=== PATIENT | male | born 1970 | race Asian ===

== ENCOUNTER 2025-10-28 12:40 | Emergency (ER) | payer BC, SELFPAY ==
[2025-10-28 12:41] VITALS: BP 164/113
[2025-10-28 13:11] VITALS: BMI 25.8
--- NOTE | 2025-10-28 13:13 | ED.GENMED ---
History of Present Illness
<Alyce Smith PA-C - Last Filed: 10/29/25 15:13>
General
Chief Complaint: Head Injury
Source: patient
Exam Limitations: none
Time Seen by Provider: 10/28/25 12:52
Nursing documentation reviewed up to this point in time: agreed with
History of Present Illness
History of Present Illness:
see MDM
Past History
<Alyce Smith PA-C - Last Filed: 10/29/25 15:13>
Past History
ED Past Medical History: HTN
Social History
Tobacco: Non-smoker
Alcohol: None
Drug: None
Review of Systems
<Alyce Smith PA-C - Last Filed: 10/29/25 15:13>
Review of Systems
Allergies reviewed?: Yes
All Other Systems: Not applicable
Phy Exam
<Alyce Smith PA-C - Last Filed: 10/29/25 15:13>
Physical Exam
Physical Exam:
GENERAL: Alert , in no apparent distress
HEAD: Forehead laceration approximately 5 cm subcutaneous, not down to the g[place]
No facial bone tenderness
NECK: no midline tenderness, active ROM intact, no paraspinal muscle tenderness;
EYE: pupils equal and reactive, EOMs intact.
NO HYPHEMA
SMALL LACERATION TO LEFT UPPER EYELID 3 MM
ENT: o/p clr, mmm. no hemotympanum Fresh blood in the left nare, no active bleeding, turbinates slightly swollen, no obvious septal hematoma, nontender nasal bone
CARDIAC: Regular rate and rhythm, no edema
LUNGS: Clear breath sounds bilaterally, no acute respiratory distress, no wheezes/rales/rhonchi
ABDOMEN: Soft, without focal tenderness, no r/g, no cvat
NEUROLOGICAL: Alert and oriented, no focal neuro deficits, CN intact, 5/5 strength, sensation intact; HAD SOME AMENSIA/REPETITION OF QUESTIONS AFTER THE INCIDENT WITNESSED BY DAUGHTER BUT GCS 15 HERE
SKIN: Warm and dry,
MUSCULOSKELETAL: No edema, well perfused.
PSYCH: Normal and appropriate interaction.
Course
<Alyce Smith PA-C - Last Filed: 10/29/25 15:13>
Orders/Labs/Results
Orders:
Orders
10/28/25 12:49
CT Head W/o Iv Contrast Stat
Comment:
Reason For Exam: head injury, acute confusion
Facial Bones wo Contrast CT [CT Facial Bones W/o Iv Contras] Urgent
Comment:
Reason For Exam: facial trauma
10/28/25 13:01
Tetanus/Diphth/Acelpertussis [Adacel] 0.5 ml IM .ONCE ONE
10/28/25 13:16
Phenylephrine 1% Extra Strengt [Satish-Synephrine 1% Nasal [place]] See Dose Instructions NASAL NOW STA
10/28/25 14:15
Acetaminophen 1000MG/100Ml [Ofirmev] 1,000 mg in 100 ml IV ONCE
Acetaminophen IV Indication:: No TX & No Enteral Access
10/28/25 14:22
Complete Blood Count/With Diff Urgent
Comprehensive Metabolic Panel Urgent
PTT Urgent
Prothrombin Time Urgent
10/28/25 14:26
Labetalol HCl [Trandate] 10 mg IV NOW STA
Levetiracetam Injectable [Keppra] 1,000 mg IV NOW STA
10/28/25 16:44
CefTRIAXone [Rocephin] 1,000 mg IV NOW STA
Abnormal Lab Results
10/28/25
14:22
MCH 31.3 H pg
(27.0-31.0)
Absolute Neuts (auto) 7.5 H 10^3/uL
(1.4-6.5)
Absolute Lymphs (auto) 0.9 L 10^3/uL
(1.2-3.4)
Neutrophils % 84.1 H %
(42.2-75.2)
Lymphocytes % 10.2 L %
(20.5-51.1)
Glucose 144 H mg/dl
(70-99)
Total Bilirubin 1.6 H mg/dl
(0.2-1.3)
AST 67 H U/L
(17-59)
ALT 86 H U/L
(0-50)
10/28/25 14:22
10/28/25 14:22
Vital Signs
Initial and Last Documented VS:
Initial Vital Signs
Temp Pulse Resp BP Pulse Ox
36.6 C 127 20 164/113 99
10/28/25 12:41 10/28/25 12:41 10/28/25 12:41 10/28/25 12:41 10/28/25 12:41
Last Documented Vital Signs
Temp Pulse Resp BP Pulse Ox
36.6 C 109 16 116/83 96
10/28/25 12:41 10/28/25 17:00 10/28/25 17:00 10/28/25 17:00 10/28/25 17:00
<Marcia Bautista, DO - Last Filed: 10/28/25 15:06>
Orders/Labs/Results
Orders:
Orders
10/28/25 12:49
CT Head W/o Iv Contrast Stat
Comment:
Reason For Exam: head injury, acute confusion
Facial Bones wo Contrast CT [CT Facial Bones W/o Iv Contras] Urgent
Comment:
Reason For Exam: facial trauma
10/28/25 13:01
Tetanus/Diphth/Acelpertussis [Adacel] 0.5 ml IM .ONCE ONE
10/28/25 13:16
Phenylephrine 1% Extra Strengt [Satish-Synephrine 1% Nasal [place]] See Dose Instructions NASAL NOW STA
10/28/25 14:15
Acetaminophen 1000MG/100Ml [Ofirmev] 1,000 mg in 100 ml IV ONCE
Acetaminophen IV Indication:: No TX & No Enteral Access
10/28/25 14:22
Complete Blood Count/With Diff Urgent
Comprehensive Metabolic Panel Urgent
PTT Urgent
Prothrombin Time Urgent
10/28/25 14:26
Labetalol HCl [Trandate] 10 mg IV NOW STA
Levetiracetam Injectable [Keppra] 1,000 mg IV NOW STA
10/28/25 16:44
CefTRIAXone [Rocephin] 1,000 mg IV NOW STA
Abnormal Lab Results
10/28/25
14:22
MCH 31.3 H pg
(27.0-31.0)
Absolute Neuts (auto) 7.5 H 10^3/uL
(1.4-6.5)
Absolute Lymphs (auto) 0.9 L 10^3/uL
(1.2-3.4)
Neutrophils % 84.1 H %
(42.2-75.2)
Lymphocytes % 10.2 L %
(20.5-51.1)
Glucose 144 H mg/dl
(70-99)
Total Bilirubin 1.6 H mg/dl
(0.2-1.3)
AST 67 H U/L
(17-59)
ALT 86 H U/L
(0-50)
10/28/25 14:22
10/28/25 14:22
Vital Signs
Initial and Last Documented VS:
Initial Vital Signs
Temp Pulse Resp BP Pulse Ox
36.6 C 127 20 164/113 99
10/28/25 12:41 10/28/25 12:41 10/28/25 12:41 10/28/25 12:41 10/28/25 12:41
Last Documented Vital Signs
Temp Pulse Resp BP Pulse Ox
36.6 C 109 16 116/83 96
10/28/25 12:41 10/28/25 17:00 10/28/25 17:00 10/28/25 17:00 10/28/25 17:00
Procedures
<Alyce Smith PA-C - Last Filed: 10/29/25 15:13>
Laceration Closure
Left Forehead:
Status of Wound: clean
Size of Wound in cm: 5
Description of Wound Edges: ragged and flap-well vascularized
Preparation: cleaned with saline
Anesthesia: 1% Lidocaine with epi
Revision/Debridement: minor revision
Wound exploration: explored to base- no FB
Type of Closure: layered closure
Skin Closure Material: 6-0 prolene (14) and 5-0 vicryl (3)
Number of sutures: 17
<Alyce Smith PA-C - Last Filed: 10/29/25 15:13>
MDM/Problems Addressed
Differential Diagnosis Includes:
see MDM
MDM/Problems Addressed:
Note:
CHIEF COMPLAINT(S)
Facial trauma and nosebleed following a garage door injury.
HISTORY OF PRESENT ILLNESS
The patient is a 55 Y/O male h/o HTN who presented with facial trauma and a nosebleed after attempting to fix a garage door. He described that while working with the metal part of the door, it fell and struck him on the face, causing laceration to
forhead, eyelid and nose bleed.. At the time of the incident, he was wearing glasses which did not shatter. There was immediate bleeding from the nose, which the patient was holding to manage the bleed. He denied any significant pain in the jaw or
elsewhere and reported no loss of consciousness or vomiting. When asked, he mentioned not experiencing any headache currently. The patient has experienced nosebleeds previously but stated it has been a long time since the last occurrence. There was
no known history of nasal fracture.
tetanus outdated
no vomiting, confusion, weakness, neck pain, vision changes
pt was wearing glasses and did not get direct trauma to his eyes.
PAST MEDICAL AND SURGICAL HISTORY
The patient provided the history of prior nosebleeds but no details of other medical issues are noted. He mentioned not being on any blood thinners.
IMMUNIZATION HISTORY
The patient last received a tetanus vaccine more than five years ago.
PLAN
- Conduct imaging studies to assess for any fractures resulting from the trauma.
- Administration of a tetanus booster, given it has been over five years since the last vaccination.
- Following imaging, suturing will be performed on any lacerations if necessary.
- Application of nasal medication to reduce bleeding by shrinking capillaries.
- Dressing to be applied over any wound to manage bleeding and prevent further exposure.
- Patient advised to lean forward if further nasal bleeding occurs, and to pinch the nose.
DIFFERENTIAL DIAGNOSIS
The Differential Diagnosis includes, in no particular order and is not limited to:
1. Nasal fracture
2. Facial contusion
3. Septal hematoma
4. Sinus fracture
5. Concussion
6. Orbital fracture
7. Laceration of facial vessels
8. Epistaxis secondary to facial trauma
9. Head trauma
10. Soft tissue injury
CARE-UPDATE
10/28/25 - 14:12
Patient exhibited signs of confusion and repetitive questioning post-injury, indicating a possible mild concussion with transient amnesia. A CT scan revealed a depressed fracture involving the frontal sinus extending to the skull, suggesting
additional observation is needed. Due to the nature of the injury, consultation with ENT and neurosurgery is advisable for monitoring potential bleeding or increased area of concern, though current findings are subtle. Transfer to a capable trauma
center is necessary for overnight observation. The patient and family opted for [facility] due to its affiliation with [facility], ensuring seamless transition if further care at [facility] is needed. Patient should remain NPO pending further evaluation
and transfer. An IV line will be initiated for fluid administration, and the wound will receive sutures. Precautions include avoiding blood thinners like aspirin or Plavix; patient only on antihypertensive medication. Transfer will be arranged via
ambulance with one accompanying family member if possible.
ct report: Acute fractures through the anterior and posterior olver[place] of the left frontal sinus with comminution and mild displacement/depression. Depressed fracture fragments from the posterior wall with mild mass effect on the anterior aspect of the
left frontal lobe. Mild adjacent left frontal pneumocephalus. Very minimal subarachnoid hemorrhage may be present.
I spoke with trauma at [facility] who accepted him as a level [address] 14 sutures in the wound, +3 subcuticular stitches
We will give him a dose of IV Rocephin for prophylaxis
There was a delay in transport on the ground via [facility] until 9:30 PM originally. We considered flying the patient after discussion with the trauma surgeon who felt that 9:30 PM was too late to wait. However they were able to get critical care
ambulance to take him rather than fly him since the flight crew's were occupied.
<Alyce Smith PA-C - Last Filed: 10/29/25 15:13>
*Pulse Oximetry
SaO2: 99
Oxygen Mode of Delivery: Room air
Patient hypoxic: no (96)
<Marcia Bautista DO - Last Filed: 10/28/25 15:06>
*Critical Care Note
Total Time (30-74mins, 75-104mins- exclusive of procedures): 38
comment:
The high probability of a clinically significant, sudden or life threatening deterioration of the trauma system(s) required my full and direct attention, intervention and personal management. The aggregate critical care time was 38 minutes. This
time is in addition to time spent performing reported procedures but includes the following:
[x] Data Review and interpretation
[x] Patient assessment and monitoring of vital signs
[x] Documentation
[x] Medication orders and management
ED Attending Note
<Alyce Smith PA-C - Last Filed: 10/29/25 15:13>
-
Portions of this chart may have been created with voice recognition software.� Occasional wrong word or��sound alike� substitutions may have occurred due to the inherent limitations of voice recognition software.
<Marcia Bautista DO - Last Filed: 10/28/25 15:06>
ED Attending Note
Patient seen and examined by attending physician: Yes
I performed the substantive portion of visit, reviewed & personally made and approve the management plan that is documented in note by myself or JANNETTE.: Yes
I performed a history and physical exam of patient and discussed management with resident, I reviewed resident's note and agree with documented findings and plan of care.: Yes
ED Attending Note:
55-year-old male with presenting to the emergency department with injury after trying to fix his garage door. Prior to arrival, notes that there was a spring involved, which kicked back, and was struck with significant force by the metal part of
the door. Denies any initial loss of consciousness and is not on any blood thinners. However and route to the hospital, daughter had noted some concern for confusion. Patient arrives with obvious signs of head trauma, with laceration above left
eyebrow with indentation, as well as a nosebleed which has since resolved.
Vital signs on arrival significant for high blood pressure. Patient initially seen and evaluated by physician gift shop assistant with appropriate workup including head imaging. CT findings are concerning for acute fractures of the anterior and posterior
olvera of the left frontal sinus with comminution and mild displacement/depression. Depressed fracture fragments from the posterior wall with mild mass effect on the anterior aspect of the left frontal lobe with left frontal pneumocephalus, cannot
exclude a minimal subarachnoid hemorrhage. On my assessment, patient is hemodynamically stable, slightly hypertensive. Large laceration above the left eyebrow. Epistaxis has resolved without any sign of septal hematoma. Pupils are equal and
reactive without any focal neurologic deficits. Given these findings, plan for transfer to trauma center. Patient will be going to [facility]. Feel stable for transfer. Physician gift shop assistant to repair laceration. Labetalol administered for blood
pressure control
Discharge Plan
Departure
Patient Disposition: Acute Care Hospital
Date of Disposition: 10/28/25
Time of Disposition: 14:34
Discharge Problem:
Fracture of frontal sinus, Pneumocephalus, SAH (subarachnoid hemorrhage)
Hospital Transfer
Other hospital: [facility]
I certify that the patient requires transfer: Yes
Discussed case with accepting physician: anais
Reason for transfer: higher level of care
Interventions
Interventions:
*Neglect/Abuse Screening Last Done: 10/28/25 12:41
*Nursing Disposition Last Done: 10/28/25 17:50
ED- Neurological Assessment Last Done: 10/28/25 14:25
ED-Skin Assessment Last Done: 10/28/25 13:18
Discharge Date and Time
Discharge Date/Time: 10/28/25 17:51
Print Language: CANADIAN
[2025-10-28] MEDS: ADACEL 0.5 ML IM (13:34)
[2025-10-28 14:43] LABS: Hematocrit 46.2 % (39.0-52.0); Hemoglobin 16.6 g/dL (13.0-18.0); Mean Corp Hgb Conc. 35.9 g/dL (33.0-37.0); Mean Corpuscular Volume 87.0 fL (80.0-94.0); Nucleated Red Blood Cells % 0 % (-); Platelet Count 270 10^3/uL (130-400); Red Cell Dist. Width 12.1 % (11.5-14.5)
[2025-10-28] MEDS: KEPPRA 1000 MG IV (14:44)
[2025-10-28] MEDS: TRANDATE 10 MG IV (14:44)
[2025-10-28 14:45] VITALS: BP 143/103
[2025-10-28 14:53] LABS: INR 1.01; PT 13.4 Sec (11.4-14.6)
[2025-10-28 14:54] LABS: APTT 24.3 Sec (23.4-35.0)
[2025-10-28 15:00] VITALS: BP 133/99
[2025-10-28 15:12] LABS: ALT (SGPT) 86 U/L (0-50); AST (SGOT) 67 U/L (17-59); Albumin 4.6 g/dl (3.5-5.0); Alkaline Phosphatase 58 U/L (38-126); Blood Urea Nitrogen 12 mg/dl (9-20); Calcium 9.3 mg/dl (8.4-10.2); Carbon Dioxide 23 mmol/L (22-30); Chloride 105 mmol/L (98-107); Estimated Creatinine Clearance 101 ml/min; Glucose 144 mg/dl (70-99); Potassium 4.4 mmol/L (3.5-5.1); Sodium 137 mmol/L (135-145); Total Protein 7.5 g/dl (6.3-8.2); eGFR > 60.00
[2025-10-28 16:00] VITALS: BP 115/84
[2025-10-28] MEDS: ROCEPHIN 1000 MG IV (16:47)
[2025-10-28 17:00] VITALS: BP 116/83
== END 2025-10-28 17:51 | disposition short-term general hospital (02) ==
LOC: EMR 12:40
PROVIDERS: Physician Assistant; EMERGENCY PHYSICIAN Student in an Organized Health Care Education/Training Program
DX: S02.19XA Other fracture of base of skull, initial encounter for closed fracture (principal); S06.6X0A Traumatic subarachnoid hemorrhage without loss of consciousness, initial encounter; G93.89 Other specified disorders of brain; S06.890A Other specified intracranial injury without loss of consciousness, initial encounter; S01.81XA Laceration without foreign body of other part of head, initial encounter; W20.8XXA Other cause of strike by thrown, projected or falling object, initial encounter; Y93.H9 Activity, other involving exterior property and land maintenance, building and construction; Y92.008 Other place in unspecified non-institutional (private) residence as the place of occurrence of the external cause; I10 Essential (primary) hypertension; Z23 Encounter for immunization
CPT/HCPCS: 99291; 96374; 96375 ×2; 12052; 90471; 70450; 70486; 80053; 85025; 85610; 85730; 90715